=== PATIENT | male | born 1965 | race African-American/Black ===

== ENCOUNTER 2023-10-12 22:13 | Emergency (ER) | payer SELFPAY ==
[~2023-10-12] VITALS: Ht 170.2 cm; Wt 59.0 kg
[2023-10-12 22:13] VITALS: BP 119/88; PULSE 110; RESP 18; TEMP 98; O2SAT 96
[2023-10-12] MEDS: LORazepam 1 MG TAB PO ONE (22:42)
[2023-10-13 00:24] VITALS: O2SAT 98
== END 2023-10-13 00:51 | disposition home or self-care (01) ==
LOC: MED 22:13
DX: F41.9 Anxiety disorder, unspecified (principal); F43.9 Reaction to severe stress, unspecified
CPT/HCPCS: 93005; 99283